=== PATIENT | male | born 1965 | race Native Hawaiian/Other Pacific Islander ===

== ENCOUNTER 2021-02-01 14:15 | Inpatient (IN) | payer MEDICAID, OTHER ==
[~2021-02-01] VITALS: Ht 177.8 cm; Wt 62.7 kg
[2021-02-01 17:01] LABS: Hemoglobin 14.3 g/dL (13.5-17.5)
[2021-02-01 17:07] LABS: Hematocrit 43.5 % (41.0-53.0); Mean Corpuscular Hemoglobin 29.9 pg (28.0-32.0); Mean Corpuscular Hgb Conc. 32.9 g/dL (32.0-36.0); Mean Corpuscular Volume 90.9 fL (80.0-100.0); Red Blood Cells 4.78 10^6/uL (4.5-5.90); Red Cell Distribution Width 16.1 % (11.8-14.3); White Blood Cell 15.8 10^3/uL (4.4-10.8)
[2021-02-01 17:11] LABS: Basophils % (manual) 0 (0.0-2.0); Blast Cells 0; Myelocytes % 0; Promyelocytes % 0; Reactive Lymphocytes 0
[2021-02-01 17:16] LABS: INR 0.95 (0.9-1.15)
[2021-02-01 17:38] LABS: Potassium 4.5 mmol/L (3.5-5.1)
[2021-02-01 17:43] LABS: BUN/Creatinine Ratio 11.1; Bilirubin, Total 0.7 mg/dL (0.2-1.0)
[2021-02-01 18:14] LABS: Urine Bacteria FEW /hpf (None Seen); Urine Blood 3+ /uL (Negative); Urine Specific Gravity 1.014 (1.001-1.035); Urine WBC 3 /hpf (0 - 3)
[2021-02-01 18:44] LABS: Band Neutrophils % (manual) 13; Eosinophils % (manual) 2 (0-7); Monocytes % (manual) 8 (0-12)
[2021-02-01 18:45] LABS: Lymphocytes % (manual) 7 (10.0-50.0); Metamyelocytes % 1
[2021-02-01] MEDS ORDERED: VANCOMYCIN 1,500 MG in D5W 5% 250 ML IV STA (19:16)
[2021-02-01] MEDS ORDERED: MORPHINE SULFATE 4 MG/ML SYR/VIAL IV ONE (19:30)
[2021-02-01] MEDS ORDERED: CEFEPIME 2 GM in SODIUM CHL 0.9% 50 ML IV ONE (19:30)
[2021-02-01] MEDS ORDERED: ONDANSETRON HCL 4 MG/2 ML VIAL IV ONE (19:30)
[2021-02-01] MEDS ORDERED: IOHEXOL 300 MG/ML 100ML BOTTLE IJ ONE (20:03)
[2021-02-01] MEDS ORDERED: SODIUM CHLORIDE 0.9% 250 ML IV ONE (22:00)
[2021-02-01] MEDS ORDERED: LABETALOL HCL 5 MG/ML 4ML SYRINGE IV ONE (22:00)
[2021-02-01] MEDS ORDERED: LABETALOL HCL 200 MG TAB PO ONE (23:00)
[2021-02-02] MEDS ORDERED: LABETALOL HCL 5 MG/ML 4ML SYRINGE IV PRN (01:00)
[2021-02-02] MEDS ORDERED: ONDANSETRON HCL 4 MG/2 ML VIAL IV PRN (01:00)
[2021-02-02] MEDS ORDERED: NITROGLYCERIN 0.4 MG SL TAB SL PRN (01:00)
[2021-02-02] MEDS ORDERED: MORPHINE SULFATE INJECTION 2 MG/ML SYRG IV PRN (01:00)
[2021-02-02] MEDS ORDERED: VANCOMYCIN PER PHARMACY 0 MG IV SCH (01:00)
[2021-02-02] MEDS ORDERED: SODIUM CHLORIDE 0.9% 1,000 ML IV SCH (01:00)
[2021-02-02] MEDS ORDERED: DOCUSATE SOD 100 MG CAP PO PRN (01:00)
[2021-02-02] MEDS ORDERED: ACETAMINOPHEN 325 MG TAB PO PRN (01:00)
[2021-02-02] MEDS: MORPHINE SULFATE 4 MG/ML SYR/VIAL IV PRN ×2 (01:27→09:43)
[2021-02-02 03:50] VITALS: BP 120/67
[2021-02-02] MEDS: CEFEPIME 2 GM in SODIUM CHL 0.9% 50 ML IV SCH ×4 (06:55→22:22)
[2021-02-02 08:15] VITALS: BP 121/67
[2021-02-02 09:00] VITALS: BP 121/67
[2021-02-02] MEDS: VANCOMYCIN 1GM/250ML 250 ML IV SCH ×2 (09:34→20:57)
[2021-02-02] MEDS: FAMOTIDINE (10MG/ML) 2ML VL IV SCH ×2 (09:34→22:25)
[2021-02-02] MEDS: ZINC SULFATE 220mg CAP or TAB PO SCH (09:34)
[2021-02-02] MEDS: METOPROLOL TARTRATE 25 MG TAB PO SCH ×2 (09:41→22:22)
[2021-02-02] MEDS: ASCORBIC ACID 500 MG TAB PO SCH ×2 (09:42→22:23)
[2021-02-02] MEDS: amLODIPine BESYLATE 5 MG TAB PO SCH (09:42)
[2021-02-02] MEDS: ENOXAPARIN SOD 40 MG/0.4 ML SYRINGE SC SCH (09:42)
[2021-02-02] MEDS: MULTIPLE VITAMIN TAB PO SCH (09:42)
[2021-02-02 09:59] LABS: Hematocrit 37.4 % (41.0-53.0); Hemoglobin 12.5 g/dL (13.5-17.5); Mean Corpuscular Hemoglobin 30.3 pg (28.0-32.0); Mean Corpuscular Hgb Conc. 33.5 g/dL (32.0-36.0); Mean Corpuscular Volume 90.3 fL (80.0-100.0); Red Blood Cells 4.15 10^6/uL (4.5-5.90); Red Cell Distribution Width 15.6 % (11.8-14.3); White Blood Cell 16.2 10^3/uL (4.4-10.8)
[2021-02-02 10:06] LABS: Basophils % (manual) 0 (0.0-2.0); Blast Cells 0; Metamyelocytes % 0; Promyelocytes % 0; Reactive Lymphocytes 0
[2021-02-02 10:26] LABS: Potassium 4.7 mmol/L (3.5-5.1)
[2021-02-02 10:34] LABS: BUN/Creatinine Ratio 15.9; Bilirubin, Total 0.7 mg/dL (0.2-1.0); Calcium 7.4 mg/dL (8.5-10.1); Total Protein 5.1 g/dL (6.4-8.2)
[2021-02-02 11:00] LABS: Band Neutrophils % (manual) 13; Eosinophils % (manual) 1 (0-7); Lymphocytes % (manual) 4 (10.0-50.0); Monocytes % (manual) 12 (0-12); Myelocytes % 1
[2021-02-02 13:00] VITALS: BP_SYST 128; BP_SYST 134; BP_DIAS 116; BP_DIAS 74
[2021-02-02] MEDS: SILVER SULFADIAZINE 1 % TOPICAL CREAM 50GM TOP SCH ×2 (13:55→22:23)
[2021-02-02 17:00] VITALS: BP 164/100
[2021-02-02 22:00] VITALS: BP 137/99
[2021-02-02] MEDS: HYDROcodone-ACET 5/325MG TAB PO PRN (22:38)
[2021-02-03 05:36] VITALS: BP 149/99
[2021-02-03] MEDS: CEFEPIME 2 GM in SODIUM CHL 0.9% 50 ML IV SCH (05:41)
[2021-02-03] MEDS: HYDROcodone-ACET 5/325MG TAB PO PRN ×4 (05:41→23:04)
[2021-02-03 05:54] LABS: Hematocrit 37.6 % (41.0-53.0); Hemoglobin 12.9 g/dL (13.5-17.5); Mean Corpuscular Hemoglobin 31.1 pg (28.0-32.0); Mean Corpuscular Hgb Conc. 34.4 g/dL (32.0-36.0); Mean Corpuscular Volume 90.4 fL (80.0-100.0); Red Blood Cells 4.15 10^6/uL (4.5-5.90); Red Cell Distribution Width 15.9 % (11.8-14.3); White Blood Cell 17.7 10^3/uL (4.4-10.8)
[2021-02-03 06:11] LABS: BUN/Creatinine Ratio 19.6; Calcium 7.5 mg/dL (8.5-10.1); Potassium 4.3 mmol/L (3.5-5.1)
[2021-02-03 06:13] LABS: Bilirubin, Total 0.6 mg/dL (0.2-1.0); Total Protein 5.2 g/dL (6.4-8.2)
[2021-02-03 06:17] LABS: Basophils % (manual) 0 (0.0-2.0); Blast Cells 0; Myelocytes % 0; Promyelocytes % 0; Reactive Lymphocytes 0
[2021-02-03 06:18] LABS: Albumin 0.9 g/dL (3.4-5.0)
[2021-02-03 07:42] LABS: Band Neutrophils % (manual) 7; Eosinophils % (manual) 2 (0-7); Lymphocytes % (manual) 7 (10.0-50.0); Metamyelocytes % 3; Monocytes % (manual) 8 (0-12)
[2021-02-03 08:30] VITALS: BP 151/96
[2021-02-03] MEDS: VANCOMYCIN 1GM/250ML 250 ML IV SCH ×2 (09:48→17:01)
[2021-02-03] MEDS: METOPROLOL TARTRATE 25 MG TAB PO SCH ×2 (09:49→21:35)
[2021-02-03] MEDS: MULTIPLE VITAMIN TAB PO SCH (09:50)
[2021-02-03] MEDS: amLODIPine BESYLATE 5 MG TAB PO SCH (09:50)
[2021-02-03] MEDS: ZINC SULFATE 220mg CAP or TAB PO SCH (09:50)
[2021-02-03] MEDS: ENOXAPARIN SOD 40 MG/0.4 ML SYRINGE SC SCH (09:50)
[2021-02-03] MEDS: FAMOTIDINE (10MG/ML) 2ML VL IV SCH ×2 (09:50→21:34)
[2021-02-03] MEDS: ASCORBIC ACID 500 MG TAB PO SCH ×2 (09:50→21:35)
[2021-02-03] MEDS: SILVER SULFADIAZINE 1 % TOPICAL CREAM 50GM TOP SCH ×2 (09:52→21:36)
[2021-02-03] MEDS ORDERED: hydrALAZINE HCL 25 MG TAB PO PRN (12:30)
[2021-02-03 13:24] VITALS: BP 148/95
[2021-02-03] MEDS ORDERED: DEXTROSE (50%) 50ML SYRG IV PRN (14:45)
[2021-02-03] MEDS: AMPICILLIN & SULBACTAM SODIUM 3 GM in SODIUM CHL 0.9% 100 ML IV SCH ×2 (16:09→21:11)
[2021-02-03 16:59] VITALS: BP 150/90
[2021-02-03] MEDS: ACCU-CHEK COMFORT CURVE STRIP VI SCH ×2 (17:01→21:37)
[2021-02-03] MEDS: InsuLIN REG 1unit/0.01ml Soln (100units/ml) SC SCH ×2 (18:23→21:35)
[2021-02-03 22:25] VITALS: BP 148/104
[2021-02-04] MEDS: VANCOMYCIN 1GM/250ML 250 ML IV SCH ×3 (02:33→17:00)
[2021-02-04] MEDS: HYDROcodone-ACET 5/325MG TAB PO PRN ×4 (04:44→20:23)
[2021-02-04] MEDS: AMPICILLIN & SULBACTAM SODIUM 3 GM in SODIUM CHL 0.9% 100 ML IV SCH ×4 (04:45→20:22)
[2021-02-04 05:22] VITALS: BP 147/99
[2021-02-04] MEDS: InsuLIN REG 1unit/0.01ml Soln (100units/ml) SC SCH ×4 (06:09→22:00)
[2021-02-04] MEDS: ACCU-CHEK COMFORT CURVE STRIP VI SCH ×4 (06:09→22:11)
[2021-02-04 07:09] LABS: Potassium 4.5 mmol/L (3.5-5.1)
[2021-02-04 07:12] LABS: Hemoglobin 12.6 g/dL (13.5-17.5); Mean Corpuscular Hemoglobin 30.4 pg (28.0-32.0); Mean Corpuscular Hgb Conc. 33.2 g/dL (32.0-36.0); Mean Corpuscular Volume 91.7 fL (80.0-100.0); Red Blood Cells 4.14 10^6/uL (4.5-5.90); Red Cell Distribution Width 15.8 % (11.8-14.3); White Blood Cell 19.1 10^3/uL (4.4-10.8)
[2021-02-04 07:15] LABS: Albumin 1.1 g/dL (3.4-5.0); BUN/Creatinine Ratio 20.7; Bilirubin, Total 0.7 mg/dL (0.2-1.0); Calcium 7.5 mg/dL (8.5-10.1); Magnesium 3.3 mg/dL (1.6-2.6); Total Protein 5.6 g/dL (6.4-8.2)
[2021-02-04 07:22] LABS: Band Neutrophils % (manual) 0; Basophils % (manual) 0 (0.0-2.0); Blast Cells 0; Eosinophils % (manual) 0 (0-7); Metamyelocytes % 0; Myelocytes % 0; Promyelocytes % 0; Reactive Lymphocytes 0
[2021-02-04 08:30] VITALS: BP 168/98
[2021-02-04 09:29] LABS: Lymphocytes % (manual) 12 (10.0-50.0); Monocytes % (manual) 6 (0-12)
[2021-02-04] MEDS: ZINC SULFATE 220mg CAP or TAB PO SCH (10:00)
[2021-02-04] MEDS: amLODIPine BESYLATE 5 MG TAB PO SCH (10:00)
[2021-02-04] MEDS: FAMOTIDINE (10MG/ML) 2ML VL IV SCH ×2 (10:00→22:09)
[2021-02-04] MEDS: ENOXAPARIN SOD 40 MG/0.4 ML SYRINGE SC SCH (10:00)
[2021-02-04] MEDS: MULTIPLE VITAMIN TAB PO SCH (10:00)
[2021-02-04] MEDS: METOPROLOL TARTRATE 25 MG TAB PO SCH ×2 (10:00→22:09)
[2021-02-04] MEDS: ASCORBIC ACID 500 MG TAB PO SCH (10:00)
[2021-02-04] MEDS: SILVER SULFADIAZINE 1 % TOPICAL CREAM 50GM TOP SCH ×2 (15:06→22:00)
[2021-02-04 16:30] VITALS: BP 146/82
[2021-02-04] MEDS ORDERED: FUROSEMIDE 20 MG/2 ML VIAL IV ONE (16:45)
[2021-02-04] MEDS ORDERED: LISINOPRIL 5 MG TAB PO ONE (16:45)
[2021-02-04] MEDS ORDERED: ERGOCALCIFEROL 50,000 UNIT(1.25MG) CAP PO SCH (16:45)
[2021-02-04 17:23] LABS: Cholesterol 195 mg/dL (< 200)
[2021-02-04 17:26] LABS: HDL Cholesterol 32 mg/dL (40-59); LDL Cholesterol 134 mg/dL (< 100); Triglycerides 186 mg/dL (< 150)
[2021-02-04 22:00] VITALS: BP 147/84
[2021-02-05] MEDS: VANCOMYCIN 1GM/250ML 250 ML IV SCH ×3 (00:41→18:32)
[2021-02-05] MEDS: AMPICILLIN & SULBACTAM SODIUM 3 GM in SODIUM CHL 0.9% 100 ML IV SCH ×2 (03:15→09:35)
[2021-02-05] MEDS: HYDROcodone-ACET 5/325MG TAB PO PRN ×4 (04:33→22:19)
[2021-02-05 05:00] VITALS: BP_SYST 139; BP_SYST 87; BP_DIAS 56; BP_DIAS 83
[2021-02-05 06:04] LABS: Hematocrit 38.5 % (41.0-53.0); Hemoglobin 12.4 g/dL (13.5-17.5); Mean Corpuscular Hemoglobin 29.3 pg (28.0-32.0); Mean Corpuscular Hgb Conc. 32.1 g/dL (32.0-36.0); Mean Corpuscular Volume 91.4 fL (80.0-100.0); Red Blood Cells 4.22 10^6/uL (4.5-5.90); Red Cell Distribution Width 15.2 % (11.8-14.3); White Blood Cell 15.2 10^3/uL (4.4-10.8)
[2021-02-05] MEDS: InsuLIN REG 1unit/0.01ml Soln (100units/ml) SC SCH ×4 (06:05→21:41)
[2021-02-05] MEDS: ACCU-CHEK COMFORT CURVE STRIP VI SCH ×4 (06:05→21:41)
[2021-02-05 06:33] LABS: Albumin 1.1 g/dL (3.4-5.0); Calcium 7.5 mg/dL (8.5-10.1); Potassium 4.8 mmol/L (3.5-5.1)
[2021-02-05 06:38] LABS: BUN/Creatinine Ratio 19.3; Bilirubin, Total 0.5 mg/dL (0.2-1.0); Total Protein 5.6 g/dL (6.4-8.2)
[2021-02-05 06:40] LABS: Basophils % (manual) 0 (0.0-2.0); Blast Cells 0; Metamyelocytes % 0; Myelocytes % 0; Promyelocytes % 0; Reactive Lymphocytes 0
[2021-02-05 07:33] LABS: Band Neutrophils % (manual) 7; Eosinophils % (manual) 2 (0-7); Lymphocytes % (manual) 18 (10.0-50.0); Monocytes % (manual) 5 (0-12)
[2021-02-05 09:00] VITALS: BP 149/94
[2021-02-05] MEDS: FAMOTIDINE (10MG/ML) 2ML VL IV SCH ×2 (09:37→22:05)
[2021-02-05] MEDS: FUROSEMIDE 20 MG/2 ML VIAL IV SCH ×2 (09:37→10:37)
[2021-02-05] MEDS: METOPROLOL TARTRATE 25 MG TAB PO SCH ×2 (09:39→22:05)
[2021-02-05] MEDS: MULTIPLE VITAMIN TAB PO SCH ×2 (09:39→10:34)
[2021-02-05] MEDS: LISINOPRIL 5 MG TAB PO SCH ×2 (09:40→10:34)
[2021-02-05] MEDS: ENOXAPARIN SOD 40 MG/0.4 ML SYRINGE SC SCH ×2 (09:41→10:35)
[2021-02-05] MEDS: SILVER SULFADIAZINE 1 % TOPICAL CREAM 50GM TOP SCH ×2 (09:42→22:05)
[2021-02-05 12:52] VITALS: BP 159/78
[2021-02-05 17:00] VITALS: BP 156/96
[2021-02-05] MEDS ORDERED: MEROPENEM 1GM IVPB 100 ML IV SCH (18:00)
[2021-02-05 22:00] VITALS: BP 122/61
[2021-02-05] MEDS ORDERED: CLINDAMYCIN 600MG IV 50 ML IV SCH (22:00)
[2021-02-06] MEDS ORDERED: FLORASTOR (S. BOULARDII) 250 MG CAP PO SCH (10:00)
== END 2021-02-06 02:00 | disposition left against medical advice (07) | DRG 720 ==
LOC: EDBD 14:15 → ER 14:15 → WEST WING 02-02 00:53
PROVIDERS: ADMIT Nurse Practitioner Family; ATTEND Internal Medicine
DX: A41.9 Sepsis, unspecified organism (principal); I50.23 Acute on chronic systolic (congestive) heart failure; E87.1 Hypo-osmolality and hyponatremia; E88.09 Other disorders of plasma-protein metabolism, not elsewhere classified; L03.115 Cellulitis of right lower limb; E66.01 Morbid (severe) obesity due to excess calories; E11.9 Type 2 diabetes mellitus without complications; I11.0 Hypertensive heart disease with heart failure; Z20.822 Contact with and (suspected) exposure to COVID-19; Z53.29 Procedure and treatment not carried out because of patient's decision for other reasons; Z72.0 Tobacco use; Z71.6 Tobacco abuse counseling; Z68.34 Body mass index [BMI] 34.0-34.9, adult
CPT/HCPCS: 36415; 71045; 73701; 80053; 80061; 80202; 81001; 82306; 82962; 83036; 83605; 83735; 83880; 85007; 85025; 85027; 85379; 85610; 87040; 87426; 93005; 93306; 93970; 96365; 96375; 99291; G0378; J1815; J2185; J2405; J3490; J7060